=== PATIENT | male | born 1955 | race Caucasian/White ===

== ENCOUNTER 2016-09-15 10:48 | Day surgery (SDC) | payer OTHER ==
[~2016-09-15 10:48] MED LIST: CIPRO500 M2 PO; CPAP; FLOMAX0.4 M1 PO; PRAVACHOL40 M1 PO; PROBIOTIC1 EAC7 PO
== END 2016-09-15 15:30 ==
LOC: SRG 10:48 → SHSB 10:49
PROC: 0JBL0ZZ Excision of Right Upper Leg Subcutaneous Tissue and Fascia, Open Approach (ICD-10-PCS; principal; 2016-09-15)
DX: L72.0 Epidermal cyst (principal); G47.30 Sleep apnea, unspecified; N40.0 Benign prostatic hyperplasia without lower urinary tract symptoms; F17.210 Nicotine dependence, cigarettes, uncomplicated; Z79.2 Long term (current) use of antibiotics; Z79.899 Other long term (current) drug therapy; Z88.1 Allergy status to other antibiotic agents; Z88.5 Allergy status to narcotic agent; Z98.890 Other specified postprocedural states
CPT/HCPCS: J0690